=== PATIENT | female | born 1965 | race Native Hawaiian/Other Pacific Islander ===

== ENCOUNTER 2021-05-28 08:49 | Outpatient (CLI) | payer BC, OTHER ==
[~2021-05-28] VITALS: Ht 165.1 cm; Wt 94.3 kg
== END 2021-05-28 19:20 | disposition home or self-care (01) ==
LOC: INF 08:49
PROVIDERS: ATTEND Nurse Practitioner Family
DX: Z23 Encounter for immunization (principal); U07.1 COVID-19
CPT/HCPCS: 96365; M0244